=== PATIENT | female | born 1990 | race Caucasian/White ===

== ENCOUNTER 2017-02-24 07:46 | Inpatient (IN) | payer OTHER ==
--- NOTE | 2017-02-18 13:35 | HP ---
Admitting History and Physical - Primary Care Physician PCP: Jose Jenkins - Admission Chief Complaint: high risk for breast cancer History of Present Illness: 26 yo female presents as a high risk patient sec to family hx and BRCA positive status. Patient had a normal mammo and MRI 05/2016. Patient is now presenting for bilateral mastectomy with reconstruction. History Source: Patient - Past Surgical History Past Surgical History: Yes: Breast Biopsy (right breast 2015-fibroadenoma) Additional Past Surgical History: right ovarian cystectomy - Smoking History Smoking history: Never smoked Home Medications - Allergies Allergies/Adverse Reactions: Allergies Allergy/AdvReac Type Severity Reaction Status Date / Time No Known Allergies Allergy Verified 02/18/17 13:38 - Home Medications Home Medications (free text): Family Disease History - Family Disease History Family Disease History: CA: Grandparent (CLL/BRCA positive), Mother (breast cancer/ BRCA positive) Other Family History: paternal aunt-breast cancer at 50 Review of Systems - Review of Systems Constitutional: reports: No Symptoms Cardiovascular: reports: No Symptoms Respiratory: reports: No Symptoms Physical Examination Constitutional: Yes: Well Nourished Breast(s): Yes: Other (B-cup breasts without skin changes. No palpable breast masses or adenopathy noted bilaterally.) Problem List - Problems (1) BRCA gene mutation positive in female Code(s): Z15.01 - GENETIC SUSCEPTIBILITY TO MALIGNANT NEOPLASM OF BREAST Z15.02 - GENETIC SUSCEPTIBILITY TO MALIGNANT NEOPLASM OF OVARY Z15.09 - GENETIC SUSCEPTIBILITY TO OTHER MALIGNANT NEOPLASM (2) Family history of breast cancer Code(s): Z80.3 - FAMILY HISTORY OF MALIGNANT NEOPLASM OF BREAST Assessment/Plan Plan Bilateral mastectomy with implant reconstruction
[2017-02-22 10:26] VITALS: BMI 28.3
[2017-02-24] MEDS ORDERED: GENTAMICIN SO4 80 MG/2 ML VIAL ONE (08:37)
[2017-02-24] MEDS ORDERED: ceFAZolin SODIUM 1 GM VIAL ONE (08:37)
[2017-02-24] MEDS ORDERED: LIDOCAINE 1%-EPI 1:100,000 30 ML MDV IJ ONE (08:37)
[2017-02-24] MEDS ORDERED: BACITRACIN 30 GM TUBE TOPICAL OINTMENT ONE (08:37)
[2017-02-24] MEDS ORDERED: DEXAMETHASONE SOD PHOSPHATE/PF 10 MG/ML SDV ONE (09:39)
[2017-02-24] MEDS ORDERED: BUPIVACAINE HCL/PF 2.5 MG/ML - 30 ML VIAL IJ ONE (09:39)
[2017-02-24] MEDS ORDERED: MIDAZOLAM HCL 2 MG/2 ML SINGLE DOSE VIAL ONE ×2 (09:39→10:01)
[2017-02-24] MEDS ORDERED: ROCURONIUM BROMIDE 50 MG/5 ML VIAL ONE ×2 (10:15→11:39)
[2017-02-24] MEDS ORDERED: SUCCINYLCHOLINE CHLORIDE 200 MG/10 ML VIAL ONE (10:15)
[2017-02-24] MEDS ORDERED: PROPOFOL 20 ML ONE ×2 (10:15)
[2017-02-24] MEDS ORDERED: ACETAMINOPHEN 325 MG TABLET (FP) PO PRN ×2 (13:02→15:18)
[2017-02-24] MEDS ORDERED: ZOLPIDEM TARTRATE 5 MG TABLET PO PRN (13:02)
[2017-02-24] MEDS ORDERED: ONDANSETRON 4 MG/2 ML VIAL IVPB PRN (13:02)
[2017-02-24] MEDS ORDERED: DEXTROSE 5%-0.45% SALINE 1,000 ML IV SCH (13:15)
[2017-02-24] MEDS ORDERED: NEOSTIGMINE METHYLSULFATE 0.5 MG/ML - 10 ML MDV ONE (13:22)
[2017-02-24] MEDS ORDERED: GLYCOPYRROLATE 0.2 MG/1 ML VIAL ONE (13:23)
[2017-02-24] MEDS ORDERED: ONDANSETRON 4 MG/2 ML VIAL ONE (13:51)
[2017-02-24] MEDS: HYDROmorphone HCL CARPU-JECT 1 MG/1 ML DISP.SYRIN ONE ×2 (13:52→14:02)
[2017-02-24] MEDS ORDERED: HYDROmorphone HCL CARPU-JECT 1 MG/1 ML DISP.SYRIN ONE (14:12)
[2017-02-24] MEDS ORDERED: ACETAMINOPHEN 325 MG TABLET (FP) ONE (14:40)
[2017-02-24] MEDS ORDERED: traMADol HCL 50 MG TABLET ONE (14:40)
[2017-02-24] MEDS ORDERED: HYDROmorphone HCL CARPU-JECT 1 MG/1 ML DISP.SYRIN IVPUSH ONE (14:46)
[2017-02-24] MEDS ORDERED: diazePAM 5 MG TABLET ONE (14:46)
[2017-02-24] MEDS: diazePAM 5 MG TABLET PO ONE ×2 (14:49→15:52)
[2017-02-24] MEDS: traMADol HCL 50 MG TABLET PO SCH ×3 (14:52→21:32)
[2017-02-24] MEDS ORDERED: HYDROmorphone HCL 2 MG TABLET PO PRN ×2 (14:52→14:57)
[2017-02-24] MEDS ORDERED: CEFAZOLIN 1 GM/D5W 50 ML IVPB SCH (15:00)
[2017-02-24] MEDS ORDERED: ACETAMINOPHEN 325 MG TABLET (FP) PO SCH (15:00)
[2017-02-24] MEDS ORDERED: LACTATED RINGERS SOLUTION 1,000 ML IV SCH (15:30)
[2017-02-24] MEDS: ONDANSETRON 4 MG/2 ML VIAL IVPB PRN ×2 (15:49→19:52)
[2017-02-24] MEDS: ACETAMINOPHEN 325 MG TABLET (FP) PO SCH ×2 (15:52→21:32)
[2017-02-24] MEDS: diazePAM 2 MG TABLET PO SCH ×2 (15:53→23:27)
--- NOTE | 2017-02-24 15:53 | OP ---
DATE OF OPERATION: 02/24/2017 PREOPERATIVE DIAGNOSIS: High risk for breast cancer BRCA1 positive. POSTOPERATIVE DIAGNOSIS: High risk for breast cancer BRCA1 positive. PROCEDURE: Bilateral total nipple sparing mastectomies through an inframammary approach with bilateral direct implant reconstruction with Alloderm. ANESTHESIA: General endotracheal anesthesia. PRIMARY SURGEON: Christopher Chambers MD HOTEL NIGHT AUDITOR: TANIKA Luo PRIMARY SURGEON FOR THE BILATERAL DIRECT IMPLANT RECONSTRUCTION: Christopher Gordon MD GREEN CHAIN WORKER: TANIKA Kaur COMPLICATIONS: None. Briefly, the patient is a 25-year-old nulliparous premenopausal female of Ashkenazi Sabianist Heritage. She has a family history of breast cancer with her mother had breast cancer at age 42 and tested BRCA1 positive. Her maternal grandfather had CLL at age 60 and her maternal aunt had breast cancer at 50. The patient had a fibroadenoma excised back in 2014. She has been getting close follow up at [facility] and did test BRCA1 positive back in 2007. The patient had recent mammography and MRI May 2016, which were negative. She was seen in consultation regarding risk reduction strategies and wanted to move forward with risk reduction prophylactic mastectomy. She understood all risks, complications of the procedure, including the risk of skin flap necrosis, hematoma, infection, and nipple loss. The patient understood the direct implant reconstruction technique. She understood that we would do retroareolar biopsies at the time of the mastectomy. If these showed cancer, we would remove the nipples. She understood the lack of any evidence for prophylactic sentinel lymph node biopsy. The patient was brought in for the procedure on February 24, 2017. In the holding area, site verification was made and informed consent was obtained. She was marked preoperatively by the Plastic Surgeon. PROCEDURE: She was brought into the operating room and laid on the OR table in the supine position. Venodynes were placed on the lower extremities prior to induction. She received a g of Ancef prior to incision. She underwent general endotracheal anesthesia. Both breasts were sterilely prepped and draped in the usual fashion. Inframammary incisions were marked out bilaterally about 8 cm in length in the inframammary folds of both breasts. The left mastectomy was first performed. Incision was made and the skin edge was everted and the breast tissue retracted inferiorly using Peter clamps. The skin flap was raised using the PEAK Radiofrequency Device superiorly to the level of the clavicle, and medially to the level of the sternum, laterally to the level of the latissimus, and inferiorly below the level of the inframammary fold. The breast was taken out of the pectoralis major muscle using electrocautery from inferior medial to superior lateral and completely removed intact. It was oriented with a long lateral, short superior suture and weighed to allow for appropriate cosmetic result. Skin flaps were trimmed for good cosmetic result. A retroareolar biopsy was taken underneath the left nipple areolar complex, which came back negative, so the left nipple was spared. Hemostasis was achieved and the wound was copiously irrigated. At this point, the right mastectomy was performed in the same fashion. Again an inframammary incision was made 8 cm in length and the skin edge was everted and the breast was retracted inferiorly using Peter clamps. The skin flap was raised using the PEAK Radiofrequency Device superiorly to the level of the clavicle, and medially to the level of the sternum, laterally to the level of the latissimus, and inferiorly below the level of the inframammary fold. The breast was taken out of the pectoralis major muscle using electrocautery from an inferior medial to superior lateral and completely removed intact. It was oriented with a long lateral, short superior suture and weighed to allow for appropriate cosmetic result. Skin flaps were trimmed for good cosmetic result. A retroareolar biopsy was taken underneath the right nipple areolar complex and sent for frozen section and came negative, so the right nipple was spared. Hemostasis was achieved and the wound was copiously irrigated with warm sterile saline. At this point, Dr. Gordon became the primary surgeon and direct implant reconstruction was performed placing the implants in the subpectoral location. Alloderm was sutured into the inferior lateral aspects of both pectoralis major muscles left of the direct implant reconstruction. Two Checo drains were placed around each implant brought through separate stab incisions on the lateral skin flaps and secured in place using a 3-0 nylon suture. All wounds will be closed by Plastic Surgery using interrupted 3-0 deep dermal PDS suture and a running 4-0 subcuticular PDS suture. Mastisol, Steri-Strips will be applied over the wounds. She will be placed in a surgical bra postoperatively. The patient will be recovered postoperatively and admitted postoperatively for pain management, wound management. She did receive a pectoral nerve block for regional anesthesia prior to going into the operating room for postop pain control. Again all sponge and needle counts were correct at the end of the case and estimated blood loss was about 100 mL. Of note, we did use the Spy Skin Perfusion Device during the case, which showed good skin perfusion in both flaps. CHRISTOPHER CHAMBERS M.D. 1 [id number]
[2017-02-24] MEDS: HYDROmorphone HCL CARPU-JECT 2 MG/1 ML DISP.SYRIN IVPB PRN (20:18)
[2017-02-24] MEDS: CEFAZOLIN 1 GM/D5W 50 ML IVPB SCH (21:31)
[2017-02-25] MEDS: CEFAZOLIN 1 GM/D5W 50 ML IVPB SCH ×3 (03:17→14:17)
[2017-02-25] MEDS: traMADol HCL 50 MG TABLET PO SCH ×4 (03:18→19:59)
[2017-02-25] MEDS: ACETAMINOPHEN 325 MG TABLET (FP) PO SCH ×4 (03:19→20:52)
[2017-02-25] MEDS: HYDROmorphone HCL CARPU-JECT 2 MG/1 ML DISP.SYRIN IVPB PRN (04:54)
[2017-02-25] MEDS: diazePAM 2 MG TABLET PO SCH ×3 (06:20→23:53)
--- NOTE | 2017-02-25 09:34 | PN ---
Progress Note, Physician Chief Complaint: bilateral mastectomy with implant reconstruction POD#1 History of Present Illness: Patient seen this am and has better pain control then yesterday. Patient without any other complaints. - Current Medication List Current Medications: Active Medications Acetaminophen (Tylenol -) 650 mg PO Q6H [facility] Last Admin: 02/25/17 03:19 Dose: 650 mg Acetaminophen (Tylenol -) 650 mg PO Q4H PRN PRN Reason: FEVER Diazepam (Valium -) 2 mg PO Q8H [facility] Last Admin: 02/25/17 06:20 Dose: Not Given Diphenhydramine HCl (Benadryl Injection -) 25 mg IVPB Q4H PRN PRN Reason: FOR ITCHING Hydromorphone HCl (Dilaudid -) 4 mg PO Q4H PRN PRN Reason: PAIN Hydromorphone HCl (Dilaudid -) 2 mg PO Q4H PRN PRN Reason: PAIN Last Admin: 02/24/17 16:42 Dose: 2 mg Hydromorphone HCl (Dilaudid Injection -) 2 mg IVPB Q4H PRN Last Admin: 02/25/17 04:54 Dose: 2 mg Cefazolin Sodium (Ancef 1 Gm Premixed Ivpb -) 50 mls @ 100 mls/hr IVPB Q6H-IV [facility] Stop: 02/25/17 15:29 Last Admin: 02/25/17 03:17 Dose: 100 mls/hr Lactated Ringer's (Lactated Ringers Solution) 1,000 mls @ 100 mls/hr IV ASDIR [facility] Last Admin: 02/24/17 16:49 Dose: Not Given Non-Formulary Medication (Norethindrone Ac-Eth Estradiol [Junel 1.5 Mg-30 Mcg Tablet]) 1 tab PO DAILY [facility] Ondansetron HCl (Zofran Injection) 4 mg IVPB Q4H PRN PRN Reason: NAUSEA AND/OR VOMITING Last Admin: 02/24/17 19:52 Dose: 4 mg Tramadol HCl (Ultram -) 50 mg PO Q6H [facility] Last Admin: 02/25/17 03:18 Dose: 50 mg - Objective Vital Signs: Vital Signs Temperature 98.2 F 02/25/17 06:00 Pulse Rate 60 02/25/17 07:54 Respiratory Rate 18 02/25/17 06:00 Blood Pressure 100/53 02/25/17 06:00 O2 Sat by Pulse Oximetry (%) 97 02/25/17 06:00 Constitutional: Yes: Well Nourished, Calm Breast(s): Yes: Other (Bilateral breast ecchymosis noted. [place] areola nipple complex. DAIJA x 4 with serosanginous discharge.) Problem List - Problems (1) BRCA gene mutation positive in female Code(s): Z15.01 - GENETIC SUSCEPTIBILITY TO MALIGNANT NEOPLASM OF BREAST Z15.02 - GENETIC SUSCEPTIBILITY TO MALIGNANT NEOPLASM OF OVARY Z15.09 - GENETIC SUSCEPTIBILITY TO OTHER MALIGNANT NEOPLASM (2) Family history of breast cancer Code(s): Z80.3 - FAMILY HISTORY OF MALIGNANT NEOPLASM OF BREAST Assessment/Plan Plan: OOB today with assistance Teach DAIJA monitoring Continue IV axbx Plan for discharge in am.
--- NOTE | 2017-02-25 10:20 | PN ---
Progress Note, Physician Chief Complaint: Pt is Pod #1 s/p bilateral nipple sparing mastectomies with direct implant placement with alloderm - Current Medication List Current Medications: Active Medications Acetaminophen (Tylenol -) 650 mg PO Q6H COUNTS INCLUDE 234 BEDS AT THE [facility] Last Admin: 02/25/17 09:33 Dose: 650 mg Acetaminophen (Tylenol -) 650 mg PO Q4H PRN PRN Reason: FEVER Diazepam (Valium -) 2 mg PO Q8H [facility] Last Admin: 02/25/17 06:20 Dose: Not Given Diphenhydramine HCl (Benadryl Injection -) 25 mg IVPB Q4H PRN PRN Reason: FOR ITCHING Hydromorphone HCl (Dilaudid -) 4 mg PO Q4H PRN PRN Reason: PAIN Hydromorphone HCl (Dilaudid -) 2 mg PO Q4H PRN PRN Reason: PAIN Last Admin: 02/24/17 16:42 Dose: 2 mg Hydromorphone HCl (Dilaudid Injection -) 2 mg IVPB Q4H PRN Last Admin: 02/25/17 04:54 Dose: 2 mg Cefazolin Sodium (Ancef 1 Gm Premixed Ivpb -) 50 mls @ 100 mls/hr IVPB Q6H-IV [facility] Stop: 02/25/17 15:29 Last Admin: 02/25/17 09:32 Dose: 100 mls/hr Lactated Ringer's (Lactated Ringers Solution) 1,000 mls @ 100 mls/hr IV ASDIR [facility] Last Admin: 02/24/17 16:49 Dose: Not Given Non-Formulary Medication (Norethindrone Ac-Eth Estradiol [Junel 1.5 Mg-30 Mcg Tablet]) 1 tab PO DAILY COUNTS INCLUDE 234 BEDS AT THE [facility] Ondansetron HCl (Zofran Injection) 4 mg IVPB Q4H PRN PRN Reason: NAUSEA AND/OR VOMITING Last Admin: 02/24/17 19:52 Dose: 4 mg Tramadol HCl (Ultram -) 50 mg PO Q6H COUNTS INCLUDE 234 BEDS AT THE [facility] Last Admin: 02/25/17 09:32 Dose: 50 mg - Objective Vital Signs: Vital Signs Temperature 98.2 F 02/25/17 06:00 Pulse Rate 60 02/25/17 07:54 Respiratory Rate 18 02/25/17 06:00 Blood Pressure 100/53 02/25/17 06:00 O2 Sat by Pulse Oximetry (%) 97 02/25/17 06:00 Constitutional: Yes: Well Nourished Eyes: Yes: WNL HENT: Yes: WNL Neck: Yes: WNL Cardiovascular: Yes: WNL Respiratory: Yes: WNL Gastrointestinal: Yes: WNL ...Rectal Exam: Yes: WNL, Deferred Genitourinary: Yes: WNL Breast(s): Yes: Other (bilateral breasts healing welll with appropriate swelling and ecchymosis. NO s/s of infections. Incisions c/d/i. DAIJA drains 2x each breast holding suction.) Musculoskeletal: Yes: WNL Extremities: Yes: WNL Integumentary: Yes: WNL Wound/Incision: Yes: Clean/Dry, Steri Strips, Dressing Dry and Intact ...Motor Strength: WNL Psychiatric: Yes: WNL Assessment/Plan S/P Bilateral breast nipple sparing mastectomies with direct implant placement and alloderm Cont pain management possible d/c tomorrow cont DAIJA drains to suction OOB to chair cont vincenzo segal.
[2017-02-25] MEDS: ONDANSETRON 4 MG/2 ML VIAL IVPB PRN (15:01)
[2017-02-26] MEDS: ACETAMINOPHEN 325 MG TABLET (FP) PO SCH ×2 (02:27→08:10)
[2017-02-26] MEDS: traMADol HCL 50 MG TABLET PO SCH ×2 (02:27→08:05)
[2017-02-26 06:51] VITALS: BP 104/75; PULSE 65; TEMP 98.5
[2017-02-26] MEDS: diazePAM 2 MG TABLET PO SCH (07:00)
--- NOTE | 2017-02-26 10:14 | DS ---
Physical Examination Vital Signs: Vital Signs Temperature 98.5 F 02/26/17 06:00 Pulse Rate 65 02/26/17 06:00 Respiratory Rate 18 02/26/17 06:00 Blood Pressure 104/75 02/26/17 06:00 O2 Sat by Pulse Oximetry (%) 97 02/26/17 06:00 Constitutional: Yes: Well Nourished, No Distress Wound/Incision: Yes: Dressing Dry and Intact (skin flaps viable, nipples with good perfusion luz elena drains functioning, serosanguineous effluent) Neurological: Yes: Alert, Oriented Discharge Summary Reason For Visit: GENETIC SUSCEPTIBILITY Current Active Problems BRCA gene mutation positive in female (Acute) Family history of breast cancer (Acute) Procedures: Principal: bilateral prophylactic mastectomies with direct implant reconstruction Hospital Course: The patient did well after surgery and remained stable throughout her hospital stay Condition: Good - Instructions Diet, Activity, Other Instructions: BREAST SURGERY INSTRUCTIONS Jose Jenkins M.D., FACS Eboni Siddiqui M.D., FACS Brandy Fletcher M.D., FACS 1. Please call the office at to make a follow up appointment with your surgeon. This number can be also used for any urgent issues you may have. 2. Call us immediately if any of the following occur: *Bleeding from the incision or drain site (a small amount is normal) *Fever or chills *Redness and worsening tenderness around the surgical site *Drainage of pus or fluid from the incision or drain site 3. You may change the surgical dressing two (2) days after your surgery, and may shower then. If you have drains, you may shower after they have been removed, until then take a sponge bath. 4. It is normal for there to be some bruising and tenderness around the surgical site, and the breast may also be firm in this area. 5. Please wear a comfortable bra (sports or surgical bra) all day and all night until your first follow-up visit with your surgeon. 6. The pain medicine you have been prescribed may make you constipated; make sure you drink plenty of water. You may use an over the counter laxative if needed. 7. You may resume your normal diet after surgery, although you may want to avoid rich foods for the first twenty-four (24) hours after surgery. Alcoholic drinks should be avoided while taking the prescribed pain medicine. 8. You may resume normal activities as long as there is no discomfort, but do not do upper body exercises until after your follow-up appointment. Do not lift anything heavier than a large phone book. You may resume driving once you have stopped taking the prescribed pain medicine and feel comfortable doing arm movements. BREAST SURGERY INSTRUCTIONS Jose Jenkins M.D., FACS Jose Jenkins M.D., GARY Siddiqui M.D., FACS 1. Please call the office at to make a follow up appointment with your surgeon. This number can be also used for any urgent issues you may have. 2. Call us immediately if any of the following occur: *Bleeding from the incision or drain site (a small amount is normal) *Fever or chills *Redness and worsening tenderness around the surgical site *Drainage of pus or fluid from the incision or drain site 3. You may change the surgical dressing two (2) days after your surgery, and may shower then. If you have drains, you may shower after they have been removed, until then take a sponge bath. 4. It is normal for there to be some bruising and tenderness around the surgical site, and the breast may also be firm in this area. 5. Please wear a comfortable bra (sports or surgical bra) all day and all night until your first follow-up visit with your surgeon. 6. The pain medicine you have been prescribed may make you constipated; make sure you drink plenty of water. You may use an over the counter laxative if needed. 7. You may resume your normal diet after surgery, although you may want to avoid rich foods for the first twenty-four (24) hours after surgery. Alcoholic drinks should be avoided while taking the prescribed pain medicine. 8. You may resume normal activities as long as there is no discomfort, but do not do upper body exercises until after your follow-up appointment. Do not lift anything heavier than a large phone book. You may resume driving once you have stopped taking the prescribed pain medicine and feel comfortable doing arm movements.Post Operative Instructions - [facility] We hope your recovery will be uneventful. For those of you who have been given general anesthesia, there is a possibility you might have some lightheadedness and possibly nausea. It is important that each patient, especially those who have had general anesthesia, follow these instructions, please: 1. Do NOT operate a motor vehicle for 24 hours. 2. Do NOT drink any alcoholic beverages for 24 hours. 3. Do NOT take any sedatives, narcotics, or tranquilizers for 24 hours unless specifically ordered by your surgeon. 4. Do NOT undertake any strenuous exercise or outside activity for 24 hours unless specifically permitted by your surgeon. 5. Eat light foods that are easy to digest. If you have any problems with nausea and vomiting, lie down and rest. If it continues, call your surgeon. 6. Call your surgeon AT ONCE if you have problems with: a. Bleeding b. Urinating c. Excessive pain or drainage d. Numbness If any problems occur, call your physician first. If you cannot reach him/her, call the Ambulatory Surgery Unit at [phone], or the Emergency Room at . Follow up with Drs. Jenkins / Chen/Chance in 7 days. Medication: Vicodin E-S OR Percocet 1-2 tablets every 4-6 hrs as needed for 5-7 days. Wound Care: Keep wound dry and clean for 48 hours. You may remove the dressing after 48 hours and may shower. Keep steri-strips in place until follow-up appointment No heavy lifting or strenuous activities. Disposition: HOME - Home Medications Comprehensive Discharge Medication List: Ambulatory Orders Norethindrone AC-Eth Estradiol [Junel 1.5 mg-30 Mcg Tablet] 1 tab PO DAILY 02/22
--- NOTE | 2017-03-01 15:39 | PATH ---
Surgical Pathology Report Patient Name: ANGÉLICA SEXTON Med. Rec. #: [id number] /Age/Gender: 1990 (Age: 26) / F Account: [id number] Location: [facility] MED-SURG Taken: 02/24/2017 Received: 02/24/2017 Reported: 03/01/2017 Physicians: Jose Jenkins M.D. Specimen(s) Received A: RIGHT RETROAREOLAR BIOPSY(FS) B: LEFT RETROAREOLAR BIOPSY (FS) C: RIGHT BREAST MASTECTOMY D: LEFT BREAST MASTECTOMY Clinical History Bilateral prophylactic BRCA1+ Final Diagnosis A. RETROAREOLA, RIGHT, BIOPSY (FS): BENIGN BREAST TISSUE; NEGATIVE FOR MALIGNANCY. B. RETROAREOLA, LEFT, BIOPSY (FS): BENIGN BREAST TISSUE; NEGATIVE FOR MALIGNANCY. C. BREAST, RIGHT, NIPPLE-SPARING MASTECTOMY: BENIGN BREAST TISSUE. D. BREAST, LEFT, NIPPLE-SPARING MASTECTOMY: BENIGN BREAST TISSUE. Electronically Signed Jojo Johnson M.D. Gross Description A. Received fresh for frozen section evaluation, labeled "right retroareolar biopsy" is a 0.5 x 0.3 x 0.2 cm portion of red and yellow soft tissue. Frozen section is performed on the specimen. The frozen section residue is entirely submitted in one cassette. B. Received is fresh for frozen section evaluation, labeled "left retroareolar biopsy" is a 1.2 x 1 x 0.2 cm portion of red and yellow soft tissue. Frozen section is performed on the specimen. The frozen section residue is entirely submitted in one cassette. C. Received in formalin, labeled "right mastectomy," is a 258 gram, 13.0 x 11.5 x 3.5 cm. right mastectomy specimen with a short suture marking the superior aspect and a long suture marking the lateral aspect of the specimen, per the surgeon. There is no skin or nipple present. The deep margin is inked black and the anterior soft tissue margin is inked blue. The specimen is serially sectioned from lateral to medial. Sectioning reveals abundant dense, white, fibrous tissue interspersed with adipose tissue. Kitchen Help Handyman sections are submitted in 14 cassettes as follows: 1-3-upper outer quadrant; 4-6-lower outer quadrant; 7-9-upper inner quadrant; 10-12-lower inner quadrant; 13-anterior soft tissue margin; 14-deep margin. D. Received in formalin, labeled "left mastectomy," is a 267 gram, 14.0 x 10.5 x 3.3 cm. left mastectomy specimen with a short suture marking the superior aspect and a long suture marking the lateral aspect of the specimen, per the surgeon. There is no skin or nipple present. The deep margin is inked black and the anterior soft tissue margin is inked blue. The specimen is serially sectioned from medial to lateral. Sectioning reveals abundant dense, white fibrous tissue interspersed with adipose tissue. Kitchen Help Handyman sections are submitted in 14 cassettes as follows: 1-3-upper outer quadrant; 4-6-lower outer quadrant; 7-9-upper inner quadrant; 10-12-lower inner quadrant; 13-anterior soft tissue margin; 14-deep margin. Time to formalin fixation: Not given Total formalin fixation time: Approximately 30 hours. 02/25/201702/25/2017
== END 2017-02-26 11:15 | disposition home or self-care (01) | DRG 585 ==
LOC: FM/S 07:46 → EDBD 09:30 → FM/S 15:00
PROVIDERS: ADMIT Surgery Surgical Oncology; ATTEND Surgery Surgical Oncology
PROC: 0HUV0KZ Supplement Bilateral Breast with Nonautologous Tissue Substitute, Open Approach (ICD-10-PCS; 2017-02-24)
PROC: 0HTV0ZZ Resection of Bilateral Breast, Open Approach (ICD-10-PCS; principal; 2017-02-24 10:40)
PROC: 0HBV0ZX Excision of Bilateral Breast, Open Approach, Diagnostic (ICD-10-PCS; 2017-02-24 10:40)
DX: Z40.01 Encounter for prophylactic removal of breast (principal); Z80.3 Family history of malignant neoplasm of breast; Z15.01 Genetic susceptibility to malignant neoplasm of breast
CPT/HCPCS: 84703; 88307-TC; 88331-TC; 94760